=== PATIENT | male | born 1960 | race Caucasian/White ===

== ENCOUNTER 2017-04-11 12:07 | Emergency (ER) | payer SELFPAY ==
[2017-04-11] MEDS ORDERED: KETOROLAC TROMETHAMINE INJ/PF 30 MG/1 ML SDV IV ONE (12:22)
[2017-04-11] MEDS ORDERED: ONDANSETRON HCL INJ/PF 4 MG/2 ML SDV IV ONE (12:22)
[2017-04-11] MEDS ORDERED: NORMAL SALINE 1000 ML 1,000 ML IV ONE (12:22)
--- NOTE | 2017-04-11 12:24 | ER Document Report ---
ED Medical Screen (RME) - General Chief Complaint: Abdominal Pain Stated Complaint: STOMACH PAIN Time Seen by Provider: 04/11/17 12:21 Mode of Arrival: Wheelchair Information source: Patient TRAVEL OUTSIDE OF THE [place] IN LAST 30 DAYS: No - HPI Patient complains to provider of: abd pain Onset: Other - pt started having generalized abd pain 2 days ago with exacerbation this am - Related Data Allergies/Adverse Reactions: No Known Allergies Allergy (Unverified 04/11/17 12:11) Home Medications: Current Home Medications Unobtainable [Unobtainable] 04/11/17 [History] Past Medical History Renal/ Medical History: Denies: Hx Peritoneal Dialysis Physical Exam - Vital signs Vitals: Temp Pulse Resp BP Pulse Ox 97.3 F 77 18 208/122 H 97 04/11/17 12:13 04/11/17 12:13 04/11/17 12:13 04/11/17 12:13 04/11/17 12:13 Course - Vital Signs Vital signs: Temp Pulse Resp BP Pulse Ox 97.3 F 77 18 208/122 H 97 04/11/17 12:13 04/11/17 12:13 04/11/17 12:13 04/11/17 12:13 04/11/17 12:13
[2017-04-11 13:04] LABS: ABSOLUTE EOSINOPHILS # (AUTO) 0.1 10^3/uL (0.0-0.6); ABSOLUTE LYMPHOCYTES (AUTO) 1.7 10^3/uL (0.5-4.7); ABSOLUTE MONOCYTES (AUTO) 0.3 10^3/uL (0.1-1.4); BASOPHILS % (AUTO) 0.5 % (0-2); EOSINOPHILS % (AUTO) 1.6 % (0-6); HEMATOCRIT 42.7 % (37.9-51.0); HEMOGLOBIN 14.6 g/dL (13.5-17.0); HGB HCT DIFFERENCE 1.1; LYMPHOCYTES % (AUTO) 27.7 % (13-45); MEAN CORPUSCULAR HEMOGLOBIN 33.1 pg (27.0-33.4); MEAN CORPUSCULAR HGB CONC 34.2 g/dL (32.0-36.0); MEAN CORPUSCULAR VOLUME 97 fl (80-97); MONOCYTES % (AUTO) 5.5 % (3-13); RED CELL DISTRIBUTION WIDTH 13.4 % (11.5-14.0); SEGMENTED NEUTROPHILS % (AUTO) 64.7 % (42-78); WHITE BLOOD COUNT 6.2 10^3/uL (4.0-10.5)
[2017-04-11 13:12] LABS: APPEARANCE,URINE SLIGHTLY-CLOUDY; BILIRUBIN,URINE NEGATIVE (NEGATIVE); GLUCOSE, URINE NEGATIVE (NEGATIVE); KETONES,URINE NEGATIVE (NEGATIVE); LEUKOCYTE ESTERASE,URINE NEGATIVE (NEGATIVE); NITRITE,URINE NEGATIVE (NEGATIVE); PROTEIN,URINE NEGATIVE (NEGATIVE); URINE SPECIFIC GRAVITY 1.014
[2017-04-11 13:41] LABS: ALANINE AMINOTRANSFERASE 30 U/L (21-72); ALBUMIN 4.4 g/dL (3.5-5.0); ALKALINE PHOSPHATASE 62 U/L (38-126); ANION GAP 11 (5-19); ASPARTATE AMINO TRANSFERASE 31 U/L (17-59); BILIRUBIN,DIRECT 0.4 mg/dL (0.0-0.4); BILIRUBIN,TOTAL 0.6 mg/dL (0.2-1.3); BLOOD UREA NITROGEN 17 mg/dL (7-20); CALCIUM 9.8 mg/dL (8.4-10.2); CARBON DIOXIDE 27 mmol/L (22-30); CHLORIDE 106 mmol/L (98-107); CREATININE RESULT 0.93 mg/dL (0.52-1.25); GLUCOSE 88 mg/dL (75-110); LIPASE 157.2 U/L (23-300); POTASSIUM 4.8 mmol/L (3.6-5.0); SODIUM 143.7 mmol/L (137-145); TOTAL PROTEIN 7.5 g/dL (6.3-8.2)
--- NOTE | 2017-04-11 14:27 | RADIOLOGY REPORT (SQ) ---
EXAM DESCRIPTION: CT ABD/PELVIS WITH IV ONLY COMPLETED DATE/TIME: 04/11/2017 2:10 pm REASON FOR STUDY: abd pain COMPARISON: None. TECHNIQUE: CT scan of the abdomen and pelvis performed using helical scanning technique with dynamic intravenous contrast injection. No oral contrast. Images reviewed with lung, soft tissue, and bone windows. Reconstructed coronal and sagittal MPR images reviewed. Delayed images for evaluation of the urinary system also acquired. All images stored on PACS. All CT scanners at this facility use dose modulation, iterative reconstruction, and/or weight based d osing when appropriate to reduce radiation dose to as low as reasonably achievable (ALARA). [facility]: Dose Right [facility]: CareDose [facility]: Dose Right [facility]: Teradose 4D [facility]: [employer] CONTRAST TYPE AND DOSE: contrast/concentration: Isovue 370.00 mg/ml; Total Contrast Delivered: 93.0 ml; Total Saline Delivered: 70.0 ml RENAL FUNCTION: Creatinine 0.93 RADIATION DOSE: Up-to-date CT equipment and radiation dose reduction techniques were employed. CTDIv ol: 10.2 - 14.0 mGy. DLP: 1310 mGy-cm.. LIMITATIONS: No oral contrast FINDINGS: LOWER CHEST: Calcified granuloma anterior left lung base. LIVER: Normal size. No masses. No dilated ducts. SPLEEN: Normal size. No focal lesions. Multiple granulomas. PANCREAS: No masses. No significant calcifications. No adjacent inflammation or peripancreatic fluid collections. Pancreatic duct not dilated. GALLBLADDER: No identified stones by CT criteria. No inflammatory changes to suggest cholecystitis. ADRENAL GLANDS: On the right side, a fatty density adrenal mass is present likely a large angio myelo lipoma. This measures 11 cm craniocaudad by 8 cm AP x 6 cm transverse. Left adrenal gland unremarka ble. RIGHT KIDNEY AND URETER: No solid masses. 4 mm right upper pole intrarenal nonobstructive stone, 2 mm right lower pole intrarenal nonobstructive stone. No hydronephrosis or hydroureter. LEFT KIDNEY AND URETER: No solid masses. 2.4 cm left upper pole renal cortical cyst. 7.8 cm left lo wer pole renal cortical cyst. 9 mm left lower pole intrarenal nonobstructive stone. No hydronephro sis or hydroureter. AORTA AND VESSELS: No aneurysm. No dissection. Renal arteries, SMA, celiac without stenosis. RETROPERITONEUM: No retroperitoneal adenopathy, hemorrhage or masses. BOWEL AND PERITONEAL CAVITY: No masses or inflammatory changes. No free fluid or peritoneal masses. APPENDIX: Normal. PELVIS: No mass. No free fluid. Normal bladder. ABDOMINAL WALL: Small fat containing bilateral inguinal hernias best shown on coronal image 32. BONES: No significant or acute findings. OTHER: No other significant finding. IMPRESSION: No acute findings. Bilateral intrarenal nonobstructive collecting system stones. 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
[2017-04-11] MEDS ORDERED: HYDRALAZINE HCL 50 MG TABLET PO ONE (14:35)
[2017-04-11] MEDS ORDERED: MAG HYDROX/AL HYDROX/SIMETH SUSP 30 ML UDCUP PO ONE (14:43)
[2017-04-11] MEDS ORDERED: METOCLOPRAMIDE HCL ORAL SOLN 10 MG/10 ML UDCUP PO ONE (14:43)
[2017-04-11] MEDS ORDERED: LIDOCAINE 2% VISCOUS SOLN 20 ML UDCUP PO ONE (14:43)
[2017-04-11] MEDS ORDERED: MAG HYDROX/AL HYDROX/SIMETH SUSP 30 ML UDCUP ONE (15:17)
[2017-04-11] MEDS ORDERED: FAMOTIDINE 20 MG TABLET PO ONE (15:38)
[2017-04-11] MEDS ORDERED: SUCRALFATE 1 GM TABLET PO ONE (15:38)
[2017-04-11] MEDS ORDERED: METOPROLOL TARTRATE 25 MG TABLET PO ONE (16:26)
--- NOTE | 2017-04-11 16:31 | ER Document Report ---
ED GI/ - General Chief Complaint: Abdominal Pain Stated Complaint: STOMACH PAIN Time Seen by Provider: 04/11/17 12:21 Mode of Arrival: Wheelchair Information source: Patient Notes: Patient is a 56-year-old male who presents to the ER today for abdominal pain in the center of his abdomen 4 days. Patient states that it is worse with food. He states that it is constant. He admits that he has had this once before but does not know what caused it. patient complains of nausea but no vomiting or diarrhea. He denies any fevers or chills.Patient also has a history of hypertension and does not take any medications because he does not have insurance to go to the doctor. TRAVEL OUTSIDE OF THE [place] IN LAST 30 DAYS: No - Related Data Allergies/Adverse Reactions: No Known Allergies Allergy (Unverified 04/11/17 12:11) Past Medical History - General Information source: Patient - Social History Smoking Status: Never Smoker Chew tobacco use (# tins/day): No Frequency of alcohol use: None Drug Abuse: None Family History: Reviewed & Not Pertinent Patient has suicidal ideation: No Patient has homicidal ideation: No - Past Medical History Cardiac Medical History: Reports: Hx Hypertension Renal/ Medical History: Denies: Hx Peritoneal Dialysis Surgical Hx: Negative Review of Systems - Review of Systems Constitutional: No symptoms reported EENT: No symptoms reported Cardiovascular: See HPI Respiratory: No symptoms reported Gastrointestinal: See HPI Genitourinary: No symptoms reported Male Genitourinary: No symptoms reported Musculoskeletal: No symptoms reported Skin: No symptoms reported Hematologic/Lymphatic: No symptoms reported Neurological/Psychological: No symptoms reported Physical Exam - Vital signs Vitals: Temp Pulse Resp BP Pulse Ox 97.3 F 77 18 208/122 H 97 04/11/17 12:13 04/11/17 12:13 04/11/17 12:13 04/11/17 12:13 04/11/17 12:13 - Notes Notes: PHYSICAL EXAMINATION: GENERAL: Uncomfortable appearing, but in no acute distress. HEAD: Atraumatic, normocephalic. EYES: Pupils equal round and reactive to light, extraocular movements intact, sclera anicteric, conjunctiva are normal. NECK: Normal range of motion, supple without lymphadenopathy LUNGS: CTAB and equal. No wheezes rales or rhonchi. HEART: Regular rate and rhythm without murmurs ABDOMEN: Soft, epigastric tenderness. No guarding, no rebound BACK: no vertebral tenderness, normal ROM GI/: no CVA tenderness EXTREMITIES: Normal range of motion, no pitting edema. No cyanosis. NEUROLOGICAL: Cranial nerves grossly intact. Normal sensory/motor exams. PSYCH: Normal mood, normal affect. SKIN: Warm, Dry, normal turgor, no rashes or lesions noted Course - Re-evaluation Re-evalutation: 04/11/17 17:09 Lab work is unremarkable today, CAT scan negative for any acute pathology. Patient feels 100% better after GI cocktail. At this time I will place patient on Carafate and Zantac for gastritis or possible ulcer. I will also place patient on blood pressure medication as here his blood pressure has been around 200/120. He denies any headache, chest pain, shortness of breath or blurred vision. He did receive blood pressure medication here. - Vital Signs Vital signs: Temp Pulse Resp BP Pulse Ox 97.3 F 77 16 183/111 H 98 04/11/17 12:13 04/11/17 12:13 04/11/17 16:31 04/11/17 16:31 04/11/17 16:31 - Laboratory Result Diagrams: 04/11/17 12:51 04/11/17 12:51 Laboratory results interpreted by me: 04/11/17 12:51 Urine Urobilinogen 2.0 H Discharge - Discharge Clinical Impression: Epigastric pain, Uncontrolled hypertension Condition: Stable Disposition: HOME, SELF-CARE Additional Instructions: Please return with worsening symptoms. Please take your blood pressure medication daily that I prescribe. Please follow up with [facility] , it does not require insurance and you need medication daily for your blood pressure. Prescriptions: Hydrochlorothiazide 25 mg PO DAILY #30 tablet Metoprolol Tartrate [Lopressor 25 mg Tablet] 12.5 mg PO Q12 #60 tab Ranitidine HCl [Zantac] 150 mg PO DAILY #30 tablet Sucralfate [Carafate 1 gm Tablet] 1 gm PO ACHS #40 tablet Forms: Return to Work Referrals: [facility] [Provider Group] - Follow up as needed
[2017-04-11 17:02] VITALS: BP 183/111
== END 2017-04-11 17:02 | disposition home or self-care (01) ==
LOC: ER 12:07
DX: R10.13 Epigastric pain (principal); I10 Essential (primary) hypertension
CPT/HCPCS: 99284; 96361; 96374; 96375; 36415; 83690; 85025; 80053; 81001; 74177; J3490; J1885; J2405; J7030

== ENCOUNTER 2019-01-08 07:41 | Emergency (ER) | payer SELFPAY ==
[2019-01-08 08:03] LABS: ABSOLUTE BASOPHILS # (AUTO) 0.1 10^3/uL (0.0-0.2); ABSOLUTE EOSINOPHILS # (AUTO) 0.1 10^3/uL (0.0-0.6); ABSOLUTE LYMPHOCYTES (AUTO) 1.5 10^3/uL (0.5-4.7); ABSOLUTE MONOCYTES (AUTO) 0.6 10^3/uL (0.1-1.4); ABSOLUTE NEUT (AUTO) 8.1 10^3/uL (1.7-8.2); BASOPHILS % (AUTO) 0.6 % (0-2); EOSINOPHILS % (AUTO) 1.4 % (0-6); HEMATOCRIT 43.6 % (37.9-51.0); HEMOGLOBIN 14.7 g/dL (13.5-17.0); MEAN CORPUSCULAR HEMOGLOBIN 32.1 pg (27.0-33.4); MEAN CORPUSCULAR HGB CONC 33.8 g/dL (32.0-36.0); MEAN CORPUSCULAR VOLUME 95 fl (80-97); MONOCYTES % (AUTO) 5.9 % (3-13); PLATELET COUNT 212 10^3/uL (150-450); RED BLOOD COUNT 4.58 10^6/uL (4.35-5.55); RED CELL DISTRIBUTION WIDTH 13.4 % (11.5-14.0); SEGMENTED NEUTROPHILS % (AUTO) 78.1 % (42-78); TOTAL CELLS COUNTED % (AUTO) 100 %; WHITE BLOOD COUNT 10.4 10^3/uL (4.0-10.5)
--- NOTE | 2019-01-08 08:15 | EKG REPORT ---
SEVERITY:- ABNORMAL ECG - SINUS RHYTHM PROBABLE LEFT VENTRICULAR HYPERTROPHY BORDERLINE INFERIOR Q WAVES ANTERIOR ST ELEVATION, PROBABLY DUE TO LVH : Confirmed by: Gustavo Malave MD 08-Jan-2019 08:15:16
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
[2019-01-08 08:26] LABS: ALBUMIN 4.1 g/dL (3.5-5.0); ALKALINE PHOSPHATASE 59 U/L (38-126); ANION GAP 8 (5-19); ASPARTATE AMINO TRANSFERASE 43 U/L (17-59); BILIRUBIN,DIRECT 0.2 mg/dL (0.0-0.4); BILIRUBIN,TOTAL 0.6 mg/dL (0.2-1.3); BLOOD UREA NITROGEN 17 mg/dL (7-20); CALCIUM 9.4 mg/dL (8.4-10.2); CARBON DIOXIDE 29 mmol/L (22-30); CHLORIDE 103 mmol/L (98-107); GLUCOSE 93 mg/dL (75-110); POTASSIUM 4.1 mmol/L (3.6-5.0)
[2019-01-08 08:38] LABS: NT PRO BNP 152 pg/mL (5-900)
[2019-01-08 08:45] LABS: TROPONIN I < 0.012 ng/mL
--- NOTE | 2019-01-08 08:47 | RADIOLOGY REPORT (SQ) ---
EXAM DESCRIPTION: CHEST SINGLE VIEW COMPLETED DATE/TIME: 01/08/2019 8:24 am REASON FOR STUDY: SOB COMPARISON: None. EXAM PARAMETERS: NUMBER OF VIEWS: One view. TECHNIQUE: Single frontal radiographic view of the chest acquired. RADIATION DOSE: NA LIMITATIONS: None. FINDINGS: LUNGS AND PLEURA: No opacities, masses or pneumothorax. No pleural effusion. MEDIASTINUM AND HILAR STRUCTURES: No masses. Contour normal. HEART AND VASCULAR STRUCTURES: Cardiomegaly. BONES: No acute findings. HARDWARE: None in the chest. OTHER: No other significant finding. IMPRESSION: Cardiomegaly without acute abnormality of the lungs in AP projection TECHNICAL DOCUMENTATION: JOB ID: [id number] [employer]- All Rights Reserved Reading location - IP/workstation name: [email or web address]
[2019-01-08] MEDS ORDERED: NORMAL SALINE 1000 ML 1,000 ML IV ONE (10:14)
[2019-01-08 10:41] LABS: APPEARANCE,URINE CLEAR; BILIRUBIN,URINE NEGATIVE (NEGATIVE); COLOR,URINE YELLOW; GLUCOSE, URINE NEGATIVE (NEGATIVE); KETONES,URINE NEGATIVE (NEGATIVE); LEUKOCYTE ESTERASE,URINE NEGATIVE (NEGATIVE); NITRITE,URINE NEGATIVE (NEGATIVE); PROTEIN,URINE NEGATIVE (NEGATIVE); UROBILINOGEN,URINE NEGATIVE mg/dL (<2.0)
[2019-01-08 10:46] LABS: ADD MANUAL MICROSCOPIC YES; WBC,URINE RARE /HPF
--- NOTE | 2019-01-08 11:28 | RADIOLOGY REPORT (SQ) ---
EXAM DESCRIPTION: CT ABD/PELVIS WITH IV ONLY COMPLETED DATE/TIME: 01/08/2019 11:10 am REASON FOR STUDY: epigastric pain, eval pancreas COMPARISON: 04/11/2017 TECHNIQUE: CT scan of the abdomen and pelvis performed using helical scanning technique with dynamic intravenous contrast injection. No oral contrast. Images reviewed with lung, soft tissue, and bone windows. Reconstructed coronal and sagittal MPR images reviewed. Delayed images for evaluation of the urinary system also acquired. All images stored on PACS. All CT scanners at this facility use dose modulation, iterative reconstruction, and/or weight based d osing when appropriate to reduce radiation dose to as low as reasonably achievable (ALARA). [facility]: Dose Right [facility]: CareDose [facility]: Dose Right [facility]: Teradose 4D [facility]: [employer] CONTRAST TYPE AND DOSE: contrast/concentration: Isovue 350.00 mg/ml; Total Contrast Delivered: 99.0 ml; Total Saline Delivered: 72.0 ml RENAL FUNCTION: GFR > 60. RADIATION DOSE: CT Rad equipment meets quality standard of care and radiation dose reduction techniq ues were employed. CTDIvol: 13.9 - 16.6 mGy. DLP: 1725 mGy-cm.. LIMITATIONS: None. FINDINGS: LOWER CHEST: No significant findings. No nodules or infiltrates. LIVER: Normal size. No masses. Granulomatous calcifications. No dilated ducts. SPLEEN: Normal size. Granulomatous calcifications. PANCREAS: No masses. No significant calcifications. No adjacent inflammation or peripancreatic fluid collections. Pancreatic duct not dilated. GALLBLADDER: No identified stones by CT criteria. No inflammatory changes to suggest cholecystitis. ADRENAL GLANDS: No change in an unusually large, fat containing right adrenal adenoma. RIGHT KIDNEY AND URETER: No solid masses. Multiple nonobstructive calculi. No hydronephrosis or hy droureter. LEFT KIDNEY AND URETER: No solid masses. Large exophytic cyst of the anterior midportion unchanged f rom prior. Multiple nonobstructive calculi. No hydronephrosis or hydroureter. AORTA AND VESSELS: No aneurysm. No dissection. Renal arteries, SMA, celiac without stenosis. RETROPERITONEUM: No retroperitoneal adenopathy, hemorrhage or masses. BOWEL AND PERITONEAL CAVITY: No masses or inflammatory changes. No free fluid or peritoneal masses. APPENDIX: Normal. PELVIS: No mass. No free fluid. Normal bladder. ABDOMINAL WALL: No masses. There is a large left inguinal hernia which contains sigmoid colon and is incompletely imaged. BONES: No significant or acute findings. OTHER: No other significant finding. IMPRESSION: 1. No acute CT findings of the abdomen or pelvis to explain abdominal pain. No CT abno rmality of the pancreas. 2. Large left inguinal hernia which contains sigmoid colon and is incompletely imaged. 3. Nonobstructive bilateral nephrolithiasis. 4. Stable nonacute findings as above. TECHNICAL DOCUMENTATION: JOB ID: [id number] Quality ID # [id number]: Final reports with documentation of one or more dose reduction techniques (e.g., Au tomated exposure control, adjustment of the mA and/or kV according to patient size, use of iterative reconstruction technique) 2010 [employer]- All Rights Reserved Reading location - IP/workstation name: [email or web address]
[2019-01-08 12:12] VITALS: BP 168/102
== END 2019-01-08 12:12 | disposition home or self-care (01) ==
LOC: ER 07:41
DX: R06.02 Shortness of breath (principal); R06.01 Orthopnea; N20.0 Calculus of kidney; R10.13 Epigastric pain; R10.816 Epigastric abdominal tenderness; I11.9 Hypertensive heart disease without heart failure; K40.90 Unilateral inguinal hernia, without obstruction or gangrene, not specified as recurrent; R20.0 Anesthesia of skin; I45.9 Conduction disorder, unspecified; R74.8 Abnormal levels of other serum enzymes; Z87.891 Personal history of nicotine dependence
CPT/HCPCS: 93005; 99285; 96360; 36415; 83690; 85025; 80053; 81001; 84484; 83880; 71045; 74177; 93010; J7030